=== PATIENT | male | born 1945 | race African-American/Black ===

== ENCOUNTER 2020-09-06 22:51 | Emergency (ER) | payer OTHER ==
[~2020-09-06] VITALS: Ht 180.3 cm; Wt 117.9 kg
[2020-09-06] MEDS ORDERED: cloNIDine HCL 0.1 MG TAB PO ONE (23:30)
[2020-09-07] MEDS ORDERED: hydrALAZINE HCL 20 MG/ML VL IV ONE ×5 (00:30→01:30)
[2020-09-07 00:42] LABS: Basophils # (auto) 0 10 ^3/uL (0-0.2); Basophils % (auto) 0.4 % (0.0-2.0); Eosinophils # (auto) 0.1 10 ^3/uL (0-0.8); Eosinophils % (auto) 1.1 % (0.0-7.0); Hematocrit 41.2 % (41.0-53.0); Hemoglobin 13.4 g/dL (13.5-17.5); Lymphocytes # (auto) 3.3 10 ^3/uL (0.4-5.4); Lymphocytes % (auto) 36.2 % (10.0-50.0); Mean Corpuscular Hemoglobin 28.9 pg (28.0-32.0); Mean Corpuscular Hgb Conc. 32.6 g/dL (32.0-36.0); Mean Corpuscular Volume 88.7 fL (80.0-100.0); Monocytes # (auto) 0.7 10 ^3/uL (0-1.3); Neutrophils # (auto) 4.9 10 ^3/uL (1.6-8.6); Neutrophils % (auto) 54.3 % (37.0-80.0); Nucleated Red Blood Cells % 0.2 %; Platelet Count (auto) 187 10^3/uL (140-450); Red Blood Cells 4.64 10^6/uL (4.5-5.90); Red Cell Distribution Width 13.9 % (11.8-14.3)
[2020-09-07 01:02] LABS: INR 0.98 (0.9-1.15); Partial Thromboplastin Time 25.8 sec (23.0-31.2)
[2020-09-07 01:03] LABS: Alanine Aminotransferase 26 U/L (16-61); Anion Gap 7 (5-15); Aspartate Aminotransferase 18 U/L (15-37); BUN/Creatinine Ratio 23.5; Blood Urea Nitrogen 19 mg/dL (7-18); Calcium 8.6 mg/dL (8.5-10.1); Carbon Dioxide 26 mmol/L (21-32); Chloride 106 mmol/L (98-107); GFR African American 120 mL/min; GFR Non-African American 99 mL/min; Glucose 101 mg/dL (74-106); Sodium 139 mmol/L (136-145)
[2020-09-07 01:08] LABS: Alkaline Phosphatase 68 U/L (45-117); Bilirubin, Total 0.4 mg/dL (0.2-1.0); Total Protein 7.3 g/dL (6.4-8.2)
[2020-09-07 01:38] VITALS: BP 161/84
== END 2020-09-07 01:38 | disposition home or self-care (01) ==
LOC: ER 22:51
DX: R04.0 Epistaxis (principal); F41.9 Anxiety disorder, unspecified; I10 Essential (primary) hypertension; R04.2 Hemoptysis
CPT/HCPCS: 30901; 36415; 80053; 83880; 84484; 85025; 85610; 85730; 96374; 96376; 99284; J0360